=== PATIENT | male | born 1950 | race Caucasian/White ===

== ENCOUNTER 2020-02-07 14:01 | Emergency (ER) | payer MEDICARE, SELFPAY ==
[2020-02-07 14:15] VITALS: BP 98/69; PULSE 76; RESP 16; TEMP 36.9; O2SAT 97
--- NOTE | 2020-02-07 15:13 | ED.SKABFB ---
HPI - Skin/Abscess/Foreign Bdy General Chief complaint: Skin/Abscess/Foreign Body Stated complaint: sore on back Time Seen by Provider: 02/07/20 15:13 Source: patient Mode of arrival: ambulatory Limitations: no limitations History of Present Illness HPI narrative: Colin Morrow is a 69 yo male with a PMH of HTN, pacemaker, DM, [facility] with complaints of lesion right upper back. He was doing yard work last year to and now has a red painful indurated area on upper back Related Data Home Medications Medication Instructions Recorded Confirmed Gummy Daily Multivitamin 02/07/20 apixaban [Eliquis] 2.5 mg PO BID 02/07/20 02/07/20 aspirin 81 mg PO DAILY 02/07/20 02/07/20 atorvastatin 20 mg PO DAILY 02/07/20 02/07/20 furosemide 20 mg PO DAILY 02/07/20 02/07/20 insulin aspart U-100 [Novolog 02/07/20 U-100 Insulin aspart] insulin glargine [Lantus U-100 32 unit SUBCUT QPM 02/07/20 02/07/20 Insulin] lisinopril 10 mg PO BID 02/07/20 02/07/20 metoprolol tartrate 25 mg PO DAILY 02/07/20 02/07/20 sertraline mg 02/07/20 spironolactone 02/07/20 Allergies Allergy/AdvReac Type Severity Reaction Status Date / Time No Known Allergies Allergy Verified 02/07/20 15:08 Review of Systems Review of Systems: Narrative: CONSTITUTIONAL: Denies fever, chills, sweats. EYES: Denies visual changes, redness, discharge. ENT: Denies rhinorrhea, congestion, sore throat, otalgia. CARDIOVASCULAR: Denies chest pain, palpitations, edema. RESPIRATORY: Denies dyspnea, wheezing, cough GASTROINTESTINAL: Denies abdominal pain, nausea, vomiting, diarrhea. GENITOURINARY: Denies dysuria, hematuria, abnormal discharge SKIN: Denies rash or itching. NEUROLOGIC: Denies numbness, or focal weakness. PSYCHIATRIC: Denies anxiety or depression. [facility] Family History Family History (Updated 02/07/20 @ 15:16 by Oma Ghotra CNP) Other Hypertension Social History Social History (Updated 02/07/20 @ 15:16 by Oma Ghotra CNP) Smoking status: Former smoker Alcohol intake: current Comments At time of signature, I agree with nursing past medical, surgical, social and family history. There is no relevant family history pertinent to the presenting complaint. Exam Narrative: Exam Narrative: My GENERAL: This is a well-nourished, well-developed patient, in mild distress. HEAD: normocephalic, atraumatic. EYES: PERRL. Sclera clear/white. Vision is grossly intact. EARS: External ears normal, auditory canals clear and without drainage, TMs normal without perforation. Hearing grossly intact. NOSE: External nose normal without nasal discharge, nares without redness, no rhinorrhea. THROAT: Mucous membranes moist, posterior pharynx NECK: Neck supple, non-tender CARDIOVASCULAR: Regular rate and rhythm without murmurs, gallops, or rubs. RESPIRATORY: Clear to auscultation. Breath sounds equal bilaterally. No wheezes, rales, or rhonchi. GASTROINTESTINAL: Abdomen soft, non-tender, SKIN: warm, intact with no suspicious lesions or rash, good texture and turgor.R upper back- 2/2 reddened area with induration NEURO: awake, alert, and oriented to person, place and time. There were no obvious focal neurologic abnormalities. Steady gait EXTREMITIES: Normal range of motion. BACK: Nontender without deformity Course Course Emergency Course: Started on Keflex and Bactrim-warm soaks to back 3 times a day Follow-up with PCP Vital Signs Vital signs: Vital Signs Temperature 98.4 F 02/07/20 14:15 Pulse Rate 76 02/07/20 14:15 Respiratory Rate 16 02/07/20 14:15 Blood Pressure 98/69 L 02/07/20 14:15 Pulse Oximetry 97 02/07/20 14:15 Temperature 98.4 F 02/07/20 14:15 Pulse Rate 76 02/07/20 14:15 Respiratory Rate 16 02/07/20 14:15 Blood Pressure 98/69 L 02/07/20 14:15 Pulse Oximetry 97 02/07/20 14:15 MDM - Skin/Abscess/Foreign Bdy Differential Diagnosis Differential diagnosis: Likely abscess of skin or subcu
== END 2020-02-07 15:43 | disposition home or self-care (01) ==
PROVIDERS: Emergency Provider Nurse Practitioner
DX: L03.312 Cellulitis of back [any part except buttock and flank] (principal); Z79.4 Long term (current) use of insulin; Z87.891 Personal history of nicotine dependence; Z79.82 Long term (current) use of aspirin; E11.9 Type 2 diabetes mellitus without complications; K21.9 Gastro-esophageal reflux disease without esophagitis; I10 Essential (primary) hypertension; E78.00 Pure hypercholesterolemia, unspecified; Z95.810 Presence of automatic (implantable) cardiac defibrillator
CPT/HCPCS: 99213; G0463

== ENCOUNTER 2023-11-28 10:59 | Emergency (ER) | payer MEDICARE, SELFPAY ==
--- NOTE | ~2023-11-28 | XR_ITS ---
EXAM: XR tibia fibula LT 2V DATE: 11/28/2023 12:01 HISTORY: fall 2 weeks ago, anterior-lateral mid-distal pain . COMPARISON: None available. FINDINGS: Decreased mineralization. No fracture or dislocation. No lytic or blastic lesion. Tricompa rtmental left knee osteoarthritis, severe in the medial compartment. Moderate degenerative change at the tibiotalar joint. No acute erosion or periosteal change. Soft tissues within normal limits. IMPRESSION: No acute osseous finding in the left tibia/fibula. Reviewed, dictated and finalized at location K.
--- NOTE | 2023-11-28 11:03 | ED.LOWEXIN ---
HPI - Extremity Injury (Lower) General Chief Complaint: Extremity Injury, Lower Stated Complaint: Left Leg Injury Time Seen by Provider: 11/28/23 11:55 Source: patient and RN notes reviewed Mode of arrival: ambulatory Limitations: no limitations History of Present Illness HPI Narrative: 73-year-old male presents with concern for left lower leg pain. Reports 2 weeks ago he fell in a parking lot related to his baseline on steady gait and has had pain in his anterior lateral left leg since then. He denies intervention for his symptoms. He has been limping. MD complaint: leg injury Related Data Home Medications Medication Instructions Recorded Confirmed Gummy Daily Multivitamin 02/07/20 apixaban 2.5 mg tablet (Eliquis) 2.5 mg PO BID 02/07/20 02/07/20 aspirin 81 mg chewable tablet 81 mg PO DAILY 02/07/20 02/07/20 atorvastatin 20 mg tablet 20 mg PO DAILY 02/07/20 02/07/20 furosemide 20 mg tablet 20 mg PO DAILY 02/07/20 02/07/20 insulin aspart U-100 100 unit/mL 02/07/20 subcutaneous solution (Novolog U-100 Insulin aspart) insulin glargine 100 unit/mL 32 unit subcut QPM 02/07/20 02/07/20 subcutaneous solution (Lantus U-100 Insulin) metoprolol tartrate 25 mg tablet 25 mg PO DAILY 02/07/20 02/07/20 sertraline 25 mg tablet mg 02/07/20 spironolactone 25 mg tablet 02/07/20 Entresto 11/28/23 Jardiance 11/28/23 amlodipine 11/28/23 turmeric 11/28/23 Allergies Allergy/AdvReac Type Severity Reaction Status Date / Time No Known Allergies Allergy Verified 11/28/23 11:17 Review of Systems Review of Systems: CONSTITUTIONAL: Denies malaise, chills, sweats, or fever. SKIN: Denies rash or itching, open skin, laceration, abrasion, redness, warmth, swelling. MUSCULOSKELETAL: Reports left lower leg pain NEUROLOGIC: Denies numbness, weakness All systems reviewed & are unremarkable except as noted in HPI and below PMFSH Family History Family History (Updated 02/07/20 @ 15:16 by Oma Ghotra, SMOKING PIPE REPAIRER) Other Hypertension Social History Social History (Updated 02/07/20 @ 15:16 by Oma Ghotra, SMOKING PIPE REPAIRER) Smoking status: Former smoker Alcohol intake: current Comments At time of signature, agree with nursing past medical, surgical, social and family history. There is no relevant family history pertinent to the presenting complaint Exam Narrative: GENERAL: Well-appearing, well-nourished, and in no acute distress. HEAD: Normocephalic, atraumatic. EYES: PERRLA, conjunctivae clear NECK: Supple. CHEST: Speaks in full sentences. No respiratory distress. HEART: Regular rate and rhythm. Normal and equal peripheral pulses. EXTREMITIES: Left lower leg has normal strength and sensation, normal range of motion for patient's baseline. No edema, erythema, edema, or ecchymosis. Normal sensation with sensitivity to light touch and pain. Point tenderness. No open wounds, no skin tenting, no devitalized tissue or atrophy, no trophic changes, no obvious deformity, alignment normal, nearby joints and structures intact. Distal pulses palpable and equal bilaterally, skin warm, dry, pink. Capillary refill less than 3 seconds. SKIN: Warm, dry, no rash. NEURO: Alert and oriented x3. PSYCH: Normal mood and affect Course Course Emergency Course: Patient is aware of diagnosis, understands and agrees to treatment plan. Anticipatory guidance given. Patient agrees to follow-up as directed and is aware of reasons to seek care at the emergency department. Portions of this record may have been created with voice recognition software Level of Care: Express Care Visit Vital Signs Vital signs: Vital Signs Temperature 97.1 F L 11/28/23 11:13 Pulse Rate 59 L 11/28/23 11:13 Respiratory Rate 16 11/28/23 11:13 Blood Pressure 127/73 11/28/23 11:13 Pulse Oximetry 97 11/28/23 11:13 Oxygen Delivery Room Air 11/28/23 11:13 Temperature 97.1 F L 11/28/23 11:18 Pulse Rate 59 L 11/28/23 11:18 Re
[2023-11-28 11:13] VITALS: BP 127/73; PULSE 59; RESP 16; TEMP 36.2; O2SAT 97
[2023-11-28 11:18] VITALS: BP 127/73; PULSE 59; RESP 16; TEMP 36.2; O2SAT 97
--- NOTE | 2023-11-28 12:03 | PC.NURSE ---
PT DECLINED WHEELCHAIR TO RADIOLOGY AND PT ROOM.
== END 2023-11-28 12:34 | disposition home or self-care (01) ==
PROVIDERS: Emergency Provider Nurse Practitioner
DX: S89.92XA Unspecified injury of left lower leg, initial encounter (principal); W19.XXXA Unspecified fall, initial encounter; Z87.891 Personal history of nicotine dependence; Z95.810 Presence of automatic (implantable) cardiac defibrillator; I25.110 Atherosclerotic heart disease of native coronary artery with unstable angina pectoris; E78.00 Pure hypercholesterolemia, unspecified; I11.0 Hypertensive heart disease with heart failure; I50.9 Heart failure, unspecified; K21.9 Gastro-esophageal reflux disease without esophagitis; Z79.4 Long term (current) use of insulin; E11.9 Type 2 diabetes mellitus without complications; F32.A Depression, unspecified; Z79.01 Long term (current) use of anticoagulants; Z79.82 Long term (current) use of aspirin
CPT/HCPCS: 73590; 99203; G0463